=== PATIENT | female | born 1970 | race Caucasian/White ===

== ENCOUNTER 2016-12-28 08:18 | Emergency (ER) | payer OTHER ==
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
== END 2016-12-28 12:40 | disposition home or self-care (01) ==
LOC: ER 08:18
DX: S70.12XA Contusion of left thigh, initial encounter (principal); S30.0XXA Contusion of lower back and pelvis, initial encounter; V43.92XA Unspecified car occupant injured in collision with other type car in traffic accident, initial encounter

== ENCOUNTER → 2017-01-13 | Outpatient (CLI) | payer OTHER | END | disposition home or self-care (01) | LOC: RAD.S 09:53 | DX: M25.552 Pain in left hip (principal); R20.0 Anesthesia of skin; R26.2 Difficulty in walking, not elsewhere classified; Z98.890 Other specified postprocedural states ==

== ENCOUNTER 2017-02-27 18:45 | Emergency (ER) | payer SELFPAY ==
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
== END 2017-02-27 20:04 | disposition home or self-care (01) ==
LOC: ER 18:45
DX: S33.5XXA Sprain of ligaments of lumbar spine, initial encounter (principal); Z90.49 Acquired absence of other specified parts of digestive tract; Z88.0 Allergy status to penicillin; Z79.899 Other long term (current) drug therapy; V89.2XXA Person injured in unspecified motor-vehicle accident, traffic, initial encounter